=== PATIENT | male | born 1985 | race Caucasian/White ===

== ENCOUNTER 2016-05-22 13:50 | Emergency (ER) | payer MEDICAID ==
[~2016-05-22] VITALS: Ht 167.6 cm; Wt 98.0 kg
[~2016-05-22 13:50] MED LIST: ALBU8.5H2 IH; AMOX500C2 PO; AZIT250T PO; CPR500T PO; CYCL10TA9 PO; Concerta PO; DOXY100C2 PO; ESZO2TAB4 PO; FAMO20TA5 PO; HYDR115S2 PO; IBUP800T26 PO; LAMO100T69 PO; METH20TA PO; MPR22T TP; NAPR-243 PO; NAPR550T PO; ONDA8TAB9 PO; PRD10T PO; PRD20T PO; RITALIN; SULF1TAB38 PO; TRAM1TAB7 PO; TRAZ-144 PO; ZLP5T PO; neurontin
[2016-05-22 14:01] LABS: BASOPHILS % (AUTO) 0 % (0-10); EOSINOPHILS % (AUTO) 0 % (0-10); LYMPHOCYTES # (AUTO) 1.8 X 10^3 (1.0-4.0); LYMPHOCYTES % (AUTO) 20 % (12-44); MEAN CORPUSCULAR HEMOGLOBIN 30 PG (25-34); MEAN CORPUSCULAR HGB CONC 35 G/DL (32-36); MEAN CORPUSCULAR VOLUME 84 FL (80-99); MEAN PLATELET VOLUME 12.2 FL (7.4-10.4); MONOCYTES # (AUTO) 0.7 X 10^3 (0.0-1.0); MONOCYTES % (AUTO) 8 % (0-12); NEUTROPHILS # (AUTO) 6.3 X 10^3 (1.8-7.8); NEUTROPHILS % (AUTO) 72 % (42-75); PLATELET COUNT 192 10^3/uL (130-400); RED BLOOD COUNT 5.63 10^6/uL (4.35-5.85); RED CELL DISTRIBUTION WIDTH 12.8 % (10.0-14.5); WHITE BLOOD COUNT 8.8 10^3/uL (4.3-11.0)
--- NOTE | 2016-05-22 14:06 | ED Neurological Problem ---
General Chief Complaint: Neurological Problems Stated Complaint: ANXIETY Nursing Triage Note: c/o feeling anxious with generalized shakes that is worse on right side. Onset around noon while filling out a job resume. Reports recently been depressed. Patient's left him last week. He states is his is having an affair with another man. Generalized bodyaches reported. Nursing Sepsis Screen: No Definite Risk Source: patient, EMS Exam Limitations: no limitations History of Present Illness Time seen by provider: 14:04 Initial Comments To ER per EMS from [facility] where he was filling out an application for employment when he began twitching. States that his right side has been twitching for the past several weeks that he is shaking all over and he does feel somewhat anxious. He denies any history of this or seizures. He reports that he has been depressed lately secondary to his having an affair and left him last week. He reports that his last methamphetamine use was 5 months ago. Timing/Duration: increasing Severity: moderate Allergies and Home Medications Allergies Coded Allergies: lamotrigine (Verified Allergy, Unknown, 03/13/16) Home Medications (Reported) Azithromycin 250 Mg Tablet #4 250 MG PO DAILY Prescribed by: DIANNE MANSFIELD on 03/13/162 Hydrocodone/Chlorphen P-Stirex 480 Ml Rocio.er.12h #120 5 ML PO Q12H Prescribed by: DIANNE MANSFIELD on 03/13/16 2212 Naproxen Sodium 550 Mg Tablet #20 550 MG PO Q12H Prescribed by: DIANNE MANSFIELD on 03/13/16 2212 Constitutional: see HPI Eyes: No Symptoms Reported Ears, Nose, Mouth, Throat: no symptoms reported Respiratory: no symptoms reported Cardiovascular: no symptoms reported Genitourinary: no symptoms reported Musculoskeletal: no symptoms reported Skin: no symptoms reported Psychiatric/Neurological: See HPI Anxiety Depressed Endocrine: No Symptoms Reported Past Kfamkok-Pvjasf-Glegeo Hx Patient Social History Type Used: Cigarettes Recent Foreign Travel: No Contact w/Someone Who Travel: No Recent Infectious Disease Expo: No Recent Hopitalizations: No Surgeries HX Surgeries: Yes (labrum right shoulder) Surgeries: Appendectomy, Orthopedic Respiratory Hx Respiratory Disorders: No Cardiovascular Hx Cardiac Disorders: No Neurological Hx Neurological Disorders: No Reproductive System Hx Reproductive Disorders: No Genitourinary Hx Genitourinary Disorders: No Gastrointestinal Hx Gastrointestinal Disorders: Yes Gastrointestinal Disorders: Chronic Diarrhea Musculoskeletal Hx Musculoskeletal Disorders: No Endocrine Hx Endocrine Disorders: No HEENT HX ENT Disorders: No Cancer Hx Cancer: No Psychosocial Hx Psychiatric Problems: Yes Behavioral Health Disorders: ADD/ADHD, Sleep Difficulties, Anxiety Integumentary HX Skin/Integumentary Disorder: No Blood Transfusions Hx Blood Disorders: No Family Medical History Significant Family History: No Pertinent Family Hx Physical Exam Vital Signs Vital Sign - Last 12Hours 05/22/16 13:53 Temp 97.5 Pulse 114 Resp 20 B/P 125/85 Pulse Ox 98 O2 Delivery Room Air Capillary Refill : Less Than 3 Seconds General Appearance: WD/WN no apparent distress HEENT: PERRL/EOMI normal ENT inspection Neck: non-tender full range of motion Respiratory: no respiratory distress no accessory muscle use Gastrointestinal: normal bowel sounds non tender soft Neurologic/Psychiatric: alert normal mood/affect oriented x 3 other (patient lays calmly in bed talking on his cell phone until he sees me in the room at which point he begins shaking on the right side arm leg and face but this diminishes and intensity as I talk with him about various subjects.) Crainal Nerves: normal hearing normal speech PERRL Motor/Sensory: no motor deficit no sensory deficit Skin: normal color warm/dry Comments There is shaking of bilateral upper extremities however while shaking he is able to carry on a conversation with me Progress/Results/Core Measures Results/Orders Lab Results Laboratory Tests Test 05/22/16 13:54 05/22/16 15:00 Range/Units Alanine Aminotransferase (ALT/SGPT) 13 0-55 U/L Albumin 4.8 H 3.2-4.5 G/DL Alkaline Phosphatase 64 40-136 U/L Anion Gap 11 5-14 MMOL/L Aspartate Amino Transf (AST/SGOT) 15 5-34 U/L BUN/Creatinine Ratio 7 Basophils # (Auto) 0.0 0.0-0.1 10^3/uL Basophils (%) (Auto) 0 0-10 % Blood Urea Nitrogen 8 7-18 MG/DL Calcium Level 9.5 8.5-10.1 MG/DL Carbon Dioxide Level 25 21-32 MMOL/L Chloride Level 106 98-107 MMOL/L Creatinine 1.15 0.60-1.30 MG/DL Eosinophils # (Auto) 0.0 0.0-0.3 10^3/uL Eosinophils (%) (Auto) 0 0-10 % Estimat Glomerular Filtration Rate > 60 Glucose Level 92 70-105 MG/DL Hematocrit 48 40-54 % Hemoglobin 16.8 13.3-17.7 G/DL Lymphocytes # (Auto) 1.8 1.0-4.0 X 10^3 Lymphocytes (%) (Auto) 20 12-44 % Mean Corpuscular Hemoglobin 30 25-34 PG Mean Corpuscular Hemoglobin Concent 35 32-36 G/DL Mean Corpuscular Volume 84 80-99 FL Mean Platelet Volume 12.2 H 7.4-10.4 FL Monocytes # (Auto) 0.7 0.0-1.0 X 10^3 Monocytes (%) (Auto) 8 0-12 % Myoglobin 57.4 10.0-92.0 NG/ML Neutrophils # (Auto) 6.3 1.8-7.8 X 10^3 Neutrophils (%) (Auto) 72 42-75 % Platelet Count 192 130-400 10^3/uL Potassium Level 3.5 L 3.6-5.0 MMOL/L Red Blood Count 5.63 4.35-5.85 10^6/uL Red Cell Distribution Width 12.8 10.0-14.5 % Sodium Level 142 135-145 MMOL/L Total Bilirubin 1.3 H 0.1-1.0 MG/DL Total Creatine Kinase 65 30-200 U/L Total Protein 7.1 6.4-8.2 G/DL White Blood Count 8.8 4.3-11.0 10^3/uL Ur Tricyclic Antidepressants Screen NEGATIVE NEGATIVE Urine Amorphous Sediment RARE JAIMIE URATES H /LPF Urine Amphetamines Screen NEGATIVE NEGATIVE Urine Bacteria TRACE /HPF Urine Barbiturates Screen NEGATIVE NEGATIVE Urine Benzodiazepines Screen NEGATIVE NEGATIVE Urine Bilirubin 1+ H NEGATIVE Urine Cannabinoids Screen NEGATIVE NEGATIVE Urine Casts NONE /LPF Urine Clarity CLEAR Urine Cocaine Screen NEGATIVE NEGATIVE Urine Color YELLOW Urine Crystals PRESENT H /LPF Urine Culture Indicated NO Urine Glucose (UA) NEGATIVE NEGATIVE Urine Ketones 3+ H NEGATIVE Urine Leukocyte Esterase 1+ H NEGATIVE Urine Methadone Screen NEGATIVE NEGATIVE Urine Methamphetamines Screen NEGATIVE NEGATIVE Urine Mucus MODERATE H /LPF Urine Nitrite NEGATIVE NEGATIVE Urine Opiates Screen NEGATIVE NEGATIVE Urine Oxycodone Screen NEGATIVE NEGATIVE Urine Phencyclidine Screen NEGATIVE NEGATIVE Urine Propoxyphene Screen NEGATIVE NEGATIVE Urine Protein 2+ H NEGATIVE Urine RBC NONE /HPF Urine RBC (Auto) NEGATIVE NEGATIVE Urine Specific [place] 1.025 H 1.016-1.022 Urine Squamous Epithelial Cells 0-2 /HPF Urine Urobilinogen 1 NORMAL MG/DL Urine WBC 2-5 /HPF Urine pH 6 5-9 My Orders Orders-DANNY WOLFE APRN Cbc With Automated Diff (05/22/16 13:56) Comprehensive Metabolic Panel (05/22/16 13:56) Ua Culture If Indicated (05/22/16 13:56) Drug Screen Stat (Urine) (05/22/16 13:56) Ct Head Wo (05/22/16 13:56) Saline Lock/Iv-Start (05/22/16 14:01) Lorazepam Injection (Ativan Injection) (05/22/16 14:15) Creatine Kinase (05/22/16 15:15) Myoglobin Serum (05/22/16 15:15) Ns Iv 1000 Ml (Sodium Chloride 0.9%) (05/22/16 15:15) Medications Given in ED Current Medications Medications Dose Ordered Sig/Rosie Route Start Time Stop Time Status Last Admin Dose Admin Lorazepam 1 mg ONCE ONCE IVP 05/22/16 14:15 05/22/16 14:16 DC 05/22/16 14:09 1 MG Vital Signs/I&O Vital Sign - Last 12Hours 05/22/16 13:53 Temp 97.5 Pulse 114 Resp 20 B/P 125/85 Pulse Ox 98 O2 Delivery Room Air Blood Pressure Mean: 98 Diagnostic Imaging Diagonstic Imaging: CT Comments NAME: LEWIS KANG [facility] REC#: [id number] PT STATUS: REG ER : 1985 PHYSICIAN: DANNY WOLFE APRN ADMIT DATE: 05/22/16/ER Signed Date of Exam:05/22/16 CT HEAD WO PROCEDURE: CT head without contrast. TECHNIQUE: Multiple contiguous axial images were obtained through the brain without the use of intravenous contrast. INDICATION: Leg weakness and shaky. Status post fall. . FINDINGS: There is no intracranial hemorrhage, edema or mass effect. The brain parenchyma appears unremarkable. No hydrocephalus. The visualized portions of the orbits and paranasal sinuses appear unremarkable. IMPRESSION: Unremarkable study. Dictated by: Dictated on workstation # [id number] Dict: 05/22/16 1421 Trans: 05/22/16 1422 [facility] [id number] Interpreted by: CARMEN LYLE MD Electronically signed by: CARMEN LYLE MD 05/22/16 1425 Departure Communication Progress Notes 1607-this time patient laying face down on the bed wiggling both of his feet playing on his cell phone. However, when I spoke and he realized I was in the room he rolled over onto his back and started twitching the right side of his hand, right leg, right face but is able to carry on a conversation with me while doing this Impression Impression: Primary Impression: Dehydration Additional Impression: Stress at home Disposition: HOME, SELF-CARE Condition: Stable Departure-Patient Inst. Decision time for Depature: 14:41 Referrals: LANDEN WILLIAMSON DO (PCP/Family) Primary Care Physician Patient Instructions: Dehydration, Stress Add. Discharge Instructions: 1. Follow-up with your doctor next week 2. Return to ER for any concerns 3. Drink lots of water, 2 L per day. All discharge instructions reviewed with patient and/or family. Voiced understanding. Copy Copies To 1: LANDEN WILLIAMSON PETER J APRN May 22, 2016 14:06
[2016-05-22] MEDS ORDERED: LORazepam INJ 2 MG/ML (ATIVAN) VIAL IVP ONE (14:15)
[2016-05-22 14:21] LABS: ALANINE AMINOTRANSFERASE 13 U/L (0-55); ALBUMIN 4.8 G/DL (3.2-4.5); ANION GAP 11 MMOL/L (5-14); ASPARTATE AMINO TRANSFERASE 15 U/L (5-34); BILIRUBIN,TOTAL 1.3 MG/DL (0.1-1.0); BLOOD UREA NITROGEN 8 MG/DL (7-18); BUN/CREATININE RATIO 7; CALCIUM 9.5 MG/DL (8.5-10.1); CARBON DIOXIDE 25 MMOL/L (21-32); CHLORIDE 106 MMOL/L (98-107); CREATININE SERUM 1.15 MG/DL (0.60-1.30); GFR ESTIMATED > 60; GLUCOSE 92 MG/DL (70-105); POTASSIUM 3.5 MMOL/L (3.6-5.0); SODIUM 142 MMOL/L (135-145); TOTAL PROTEIN 7.1 G/DL (6.4-8.2)
--- NOTE | 2016-05-22 14:25 | Diagnostic Imaging Report ---
PROCEDURE: CT head without contrast. TECHNIQUE: Multiple contiguous axial images were obtained through the brain without the use of intravenous contrast. INDICATION: Leg weakness and shaky. Status post fall. . FINDINGS: There is no intracranial hemorrhage, edema or mass effect. The brain parenchyma appears unremarkable. No hydrocephalus. The visualized portions of the orbits and paranasal sinuses appear unremarkable. IMPRESSION: Unremarkable study. Dictated by: Dictated on workstation # [id number]
[2016-05-22] MEDS ORDERED: HYDR-757 PO (14:43)
[2016-05-22] MEDS ORDERED: KETO5DRO OP (14:46)
[2016-05-22 15:06] LABS: KETONES,URINE 3+ (NEGATIVE); LEUKOCYTE ESTERASE ,URINE 1+ (NEGATIVE); NITRITE,URINE NEGATIVE (NEGATIVE); PH,URINE 6 (5-9); PROTEIN,URINE 2+ (NEGATIVE); UROBILINOGEN,URINE 1 MG/DL (NORMAL)
[2016-05-22 15:14] LABS: BILIRUBIN,URINE 1+ (NEGATIVE); SQUAMOUS EPITHELIAL CELL,UR 0-2 /HPF
[2016-05-22] MEDS ORDERED: NS IV 1000 ML 1,000 ML IV SCH (15:15)
[2016-05-22 15:35] LABS: MYOGLOBIN SERUM 57.4 NG/ML (10.0-92.0)
[2016-05-22 16:42] VITALS: BP 128/72
== END 2016-05-22 16:42 | disposition home or self-care (01) ==
LOC: EDUNIT# 13:50 → ER 13:52
DX: E86.0 Dehydration (principal); Z63.5 Disruption of family by separation and divorce
CPT/HCPCS: 36415; 70450; 80053; 80306; 81000; 82550; 83874; 85025; 96361; 96374

== ENCOUNTER 2017-03-24 07:23 | Emergency (ER) | payer OTHER, MEDICAID ==
[~2017-03-24] VITALS: Ht 167.6 cm; Wt 72.6 kg
[~2017-03-24 07:23] MED LIST changes: +HYDR-757 PO; +KETO5DRO OP
--- OUTSIDE RECORDS SUMMARY | 2017-03-24 07:29 | XMS REPORT ---
Author Author TAMIKO LARA eClinicalWorks Address Unknown Phone Unavailable Care Team Providers Care Bioinformatics Support Specialist Name Role Phone TAMIKO LARA CP Unavailable Allergies No Known Allergies Problems Problem Type Condition ICD-9 Code Onset Dates Condition Status Problem Nondependent tobacco use disorder 305.1 Active Problem Unspecified dental caries 521.00 Active Problem Unspecified episodic mood disorder 296.90 Active Problem Encounter for long-term (current) use of other medications V58.69 Active Problem Routine general medical examination at health care facility V70.0 Active Problem Anxiety state, unspecified 300.00 Active Medications Medication Code System Code Instructions Start Date End Date Status Dosage Methylphenidate [facility] [address]-72 20 MG/9HR Oral in the AM, 1pm and 4pm for ADHD 1 tab Results No Known Results Summary Purpose eClinicalWorks Submission
--- OUTSIDE RECORDS SUMMARY | 2017-03-24 07:31 | XMS REPORT ---
Author TAMIKO Saldana e[employer] Address Unknown Phone Unavailable Care Team Providers Care Household Appliance Assembler Name Role Phone TAMIKO LARA CP Unavailable Allergies No Known Allergies Problems Problem Type Condition Code Onset Dates Condition Status Problem Encounter for long-term (current) use of other medications V58.69 Active Problem ADHD, predominantly inattentive type F90.0 Active Problem Depression F32.9 Active Problem Anxiety state, unspecified 300.00 Active Problem Unspecified dental caries 521.00 Active Problem Routine general medical examination at health care facility V70.0 Active Problem Unspecified mood [affective] disorder F39 Active Problem Nondependent tobacco use disorder 305.1 Active Medications Medication Code System Code Instructions Start Date End Date Status Dosage HydrOXYzine HCl [facility] [address]-21 25 MG Orally 1 tab in AM and 2 tab at HS for anxiety Dec 30, 2014 1 tablet Results No Known Results Summary Purpose eClinicalWorks Submission
--- OUTSIDE RECORDS SUMMARY | 2017-03-24 07:31 | XMS REPORT ---
Author Author ETIENNE ESPITIA [facility] eClinicalWorks Address Unknown Phone Unavailable Care Team Providers Care Shotgun Shell Loading Machine Operator Name Role Phone ETIENNE ESPITIA CP Unavailable Allergies No Known Allergies Problems Problem Type Condition Code Onset Dates Condition Status Problem Nondependent tobacco use disorder 305.1 Active Problem Unspecified dental caries 521.00 Active Problem Unspecified mood [affective] disorder F39 Active Assessment Unspecified mood [affective] disorder F39 Active Problem Routine general medical examination at health care facility V70.0 Active Problem Encounter for long-term (current) use of other medications V58.69 Active Medications No Known Medications Procedures Procedure Coding System Code Date Psychotherapy, patient &/family, 45 minutes, established patient CPT-4 02652 Mar 02, 2015 Results No Known Results Summary Purpose eClinicalWorks Submission
--- OUTSIDE RECORDS SUMMARY | 2017-03-24 07:31 | XMS REPORT ---
Author TAMIKO Saldana e[employer] Address Unknown Phone Unavailable Care Team Providers Care Psych Arnp Name Role Phone TAMIKO LARA CP Unavailable [...] Instructions Start Date End Date Status Dosage Ritalin [facility] [address]-36 10 MG Orally in the AM and 1pm and 1 tab at 4pm for ADHD - Dr Fowler to sign for Karly July 27, 2014 2 tablet Results No Known Results Summary Purpose eClinicalWorks Submission
--- OUTSIDE RECORDS SUMMARY | 2017-03-24 07:31 | XMS REPORT ---
Author Author JANE TAMIKO Organization [facility] Address [address] [place] [address] Care Team Providers Care Two Needle Machine Operator Name Role Phone TAMIKO LARA Unavailable PROBLEMS Type Condition ICD9-CM Code [id number] Code Onset Dates Condition Status SNOMED Code Problem Environmental allergies Z91.09 Active 062196014 Problem Anxiety F41.9 Active 69057036 Problem ADHD, predominantly inattentive type F90.0 Active 67912904 Problem Pain in right shoulder M25.511 Active 40295440 Problem Depression F32.9 Active 59432915 ALLERGIES Substance Reaction Event Type Date Status Lamictal RASH ALL OVER BODY WAS SEEN IN ER. Drug Allergy May, Active SOCIAL HISTORY Never Assessed PLAN OF CARE Activity Details Follow Up 3 Months Reason: VITAL SIGNS Height 67 in 2016-06-07 Weight 216.9 lbs 2016-06-07 Heart Rate 84 bpm 2016-06-07 Respiratory Rate 20 2016-06-07 BMI 33.97 kg/m2 2016-06-07 Blood pressure systolic 137 mmHg 2016-06-07 Blood pressure diastolic 88 mmHg 2016-06-07 MEDICATIONS Medication Instructions Dosage Frequency Start Date End Date Duration Status BuPROPion HCl (SR) 150 MG Orally in the morning and at bedtime 1 tablet Nov, Active Clonidine HCl 0.2 MG Orally at bedtime for sleep 1 tablet May, Active Methylphenidate HCl 20 MG Orally in the AM & 12N. Take 1/2 tab at 4pm for ADHD 1 tablet May, Active Neurontin 300 MG Orally 2 times a day 1 capsule 12h 30 Oct, 2015 Active RESULTS No Results PROCEDURES No Known procedures IMMUNIZATIONS No Known Immunizations MEDICAL (GENERAL) HISTORY Type Description Date Medical History ADHD Medical History Anxiety Medical History Mood Swings Medical History Unspecified mood [affective] disorder Medical History Marital conflict Medical History Adjustment disorder with anxious mood Medical History MARQUIS (generalized anxiety disorder) Medical History MARQUIS (generalized anxiety disorder) Surgical History appendectomy 2011 Surgical History right shoulder repair x 2 2012 Surgical History Right Shoulder 2016 Hospitalization History strep throat 2010
--- OUTSIDE RECORDS SUMMARY | 2017-03-24 07:31 | XMS REPORT ---
Author TAMIKO Saldana eClinicalWorks Address Unknown Phone Unavailable Care Team Providers Care Commercial Director Name Role Phone TAMIKO LARA CP Unavailable Allergies, Adverse Reactions, Alerts Substance Reaction Event Type Lamictal RASH ALL OVER BODY WAS SEEN IN ER. Drug Allergy Problems Problem Type Condition ICD-9 Code Onset Dates Condition Status Assessment Anxiety state, unspecified 300.00 Active Assessment Attention deficit disorder without mention of hyperactivity 314.00 Active Problem Nondependent tobacco use disorder 305.1 Active Problem Unspecified dental caries 521.00 Active Problem Unspecified episodic mood disorder 296.90 Active Problem Encounter for long-term (current) use of other medications V58.69 Active Assessment Unspecified episodic mood disorder 296.90 Active Problem Routine general medical examination at health care facility V70.0 Active Problem Anxiety state, unspecified 300.00 Active Medications Medication Code System Code Instructions Start Date End Date Status Dosage HydrOXYzine HCl [facility] [address]-18 25 MG Orally 2 times a day for anxiety Dec 30, 2014 1 tablet Neurontin [facility] [address]-46 300 MG Orally 2 times a day for anxiety/mood Dec 30, 2014 1 capsule Methylphenidate [facility] [address]-03 20 MG/9HR Oral in the AM, 1pm and 4pm for ADHD 1 tab Procedures Procedure Coding System Code Date Office Visit, Est Pt., Level 3 CPT-4 07684 Feb 01, 2015 Vital Signs Date/Time: Feb 01, 2015 Temperature 98.3 F Weight 204 lbs Height 67 in BMI 31.95 Index Blood Pressure Diastolic 80 mmHg Blood Pressure Systolic 120 mmHg Cardiac Monitoring Heart Rate 108 bpm Results No Known Results Summary Purpose eClinicalWorks Submission
--- OUTSIDE RECORDS SUMMARY | 2017-03-24 07:33 | XMS REPORT ---
Author Author TAMIKO LARA eClinicalWorks Address Unknown Phone Unavailable Care Team Providers Care Rn Paralegal Name Role Phone TAMIKO LARA CP Unavailable Allergies, Adverse Reactions, Alerts Substance Reaction Event Type Lamictal RASH ALL OVER BODY WAS SEEN IN ER. Drug Allergy Problems Problem Type Condition ICD-9 Code Onset Dates Condition Status Assessment Acute stress disorder 308.3 Active Assessment Unspecified episodic mood disorder 296.90 Active Assessment ADHD (attention deficit hyperactivity disorder), combined type 314.01 Active Problem Nondependent tobacco use disorder 305.1 Active Problem Unspecified dental caries 521.00 Active Problem Unspecified episodic mood disorder 296.90 Active Problem Encounter for long-term (current) use of other medications V58.69 Active Assessment Anxiety state, unspecified 300.00 Active Problem Routine general medical examination at health care facility V70.0 Active Problem Anxiety state, unspecified 300.00 Active Medications Medication Code System Code Instructions Start Date End Date Status Dosage Neurontin [facility] [address]-23 300 MG Orally 1 tab at HS for 3 days then increase to BID Dec 30, 2014 1 capsule HydrOXYzine HCl [facility] [address]-68 25 MG Orally 2 times a day for anxiety Dec 30, [address] [facility] [address]-01 20 MG/9HR Oral in the AM, 1pm and 4pm for ADHD 1 tab Procedures Procedure Coding System Code Date Office Visit, Est Pt., Level 4 CPT-4 47860 Dec 30, 2014 Vital Signs Date/Time: Dec 30, 2014 Temperature 98.0 F Weight 202.1 lbs Height 67 in BMI 31.65 Index Blood Pressure Diastolic 78 mmHg Blood Pressure Systolic 120 mmHg Cardiac Monitoring Heart Rate 68 bpm Results No Known Results Summary Purpose eClinicalWorks Submission
--- OUTSIDE RECORDS SUMMARY | 2017-03-24 07:33 | XMS REPORT ---
Author TAMIKO Saldana eClinicalWorks Address Unknown Phone Unavailable Care Team Providers Care Production Control Coordinator Name Role Phone TAMIKO LARA CP Unavailable Allergies No Known Allergies Problems Problem Type Condition Code Onset Dates Condition Status Problem Encounter for long-term (current) use of other medications V58.69 Active Problem Unspecified dental caries 521.00 Active Problem Routine general medical examination at health care facility V70.0 Active Assessment MARQUIS (generalized anxiety disorder) F41.1 Active Assessment ADHD, predominantly inattentive type F90.0 Active Problem MARQUIS (generalized anxiety disorder) F41.1 Active Problem Anxiety state, unspecified 300.00 Active Problem Pain in right shoulder M25.511 Active Problem Unspecified mood [affective] disorder F39 Active Problem Nondependent tobacco use disorder 305.1 Active Problem ADHD, predominantly inattentive type F90.0 Active Problem Depression F32.9 Active Medications Medication Code System Code Instructions Start Date End Date Status Dosage Neurontin [facility] [address]-82 300 MG Orally 2 times a day November 10, 2015 1 capsule BuPROPion HCl (SR) [facility] [address]-99 150 MG Orally Once a day for nicotine addiction December 01, 2015 1 tablet Procedures Procedure Coding System Code Date DRUG SCREEN NON TLC DEVICES CPT-4 79565 December 01, 2015 Office Visit, Est Pt., Level 4 CPT-4 30337 December 01, 2015 Vital Signs Date/Time: December 01, 2015 Cardiac Monitoring Heart Rate 80 bpm Weight 208.6 lbs Height 67 in Blood Pressure Diastolic 76 mmHg Blood Pressure Systolic 132 mmHg Results No Known Results Summary Purpose eClinicalWorks Submission
--- OUTSIDE RECORDS SUMMARY | 2017-03-24 07:33 | XMS REPORT ---
Author Author MANISHA CARLSON [facility] Address [address] [place] [address] Care Team Providers Care Suction Plate Carrier Cleaner Name Role Phone MANISHA CARLSON Unavailable PROBLEMS Type Condition ICD9-CM Code [id number] Code Onset Dates Condition Status SNOMED Code Problem Environmental allergies Z91.09 Active 888296301 Problem Anxiety F41.9 Active 35127832 Problem ADHD, predominantly inattentive type F90.0 Active 07782923 Problem Pain in right shoulder M25.511 Active 45800968 Problem Depression F32.9 Active 02626461 ALLERGIES Substance Reaction Event Type Date Status Lamictal RASH ALL OVER BODY WAS SEEN IN ER. Drug Allergy May, Active SOCIAL HISTORY No smoking Hx information available PLAN OF CARE Activity Details Follow Up 2 Weeks Reason:depression, anxiety VITAL SIGNS MEDICATIONS Unknown Medications RESULTS No Results PROCEDURES Procedure Date Ordered Related Diagnosis Body Site Psychotherapy, patient &/family, 30 minutes, established patient Jun 12, 2016 IMMUNIZATIONS No Known Immunizations
--- OUTSIDE RECORDS SUMMARY | 2017-03-24 07:33 | XMS REPORT ---
Author Author TAMIKO LARA eClinicalWorks Address Unknown Phone Unavailable Care Team Providers Care Neurology Teacher Name Role Phone TAMIKO LARA CP Unavailable Allergies, Adverse Reactions, Alerts Substance Reaction Event Type Lamictal RASH ALL OVER BODY WAS SEEN IN ER. Drug Allergy Problems Problem Type Condition Code Onset Dates Condition Status Assessment Anxiety state, unspecified 300.00 Active Problem Encounter for long-term (current) use of other medications V58.69 Active Assessment ADHD, predominantly inattentive type F90.0 Active Problem ADHD, predominantly inattentive type F90.0 Active Problem Depression F32.9 Active Problem Anxiety state, unspecified 300.00 Active Problem Unspecified dental caries 521.00 Active Problem Routine general medical examination at health care facility V70.0 Active Problem Unspecified mood [affective] disorder F39 Active Problem Nondependent tobacco use disorder 305.1 Active Medications Medication Code System Code Instructions Start Date End Date Status Dosage Ritalin [facility] [address]-34 10 MG Orally in the AM and 1pm and 1 tab at 4pm for ADHD - Dr Fowler to sign for Karly July 27, 2014 2 tablet HydrOXYzine HCl [facility] [address]-32 25 MG Orally 1 tab in AM and 2 tab at HS for anxiety Dec 30, 2014 1 tablet Neurontin [facility] [address]-19 300 MG Orally 2 times a day Dec 30, 2014 1 capsule Procedures Procedure Coding System Code Date Office Visit, Est Pt., Level 4 CPT-4 42742 May 12, 2015 Vital Signs Date/Time: May 12, 2015 Cardiac Monitoring Heart Rate 88 bpm Weight 212.8 lbs Height 67 in BMI 33.33 Index Blood Pressure Diastolic 90 mmHg Blood Pressure Systolic 130 mmHg Results No Known Results Summary Purpose eClinicalWorks Submission
--- OUTSIDE RECORDS SUMMARY | 2017-03-24 07:33 | XMS REPORT ---
Author Author TAMIKO LARA Organization [facility] Address [address] [place] [address] Care Team Providers Care Betting Clerk Name Role Phone JANEMEDARDOTAMIKO Unavailable PROBLEMS Type Condition ICD9-CM Code [id number] Code Onset Dates Condition Status SNOMED Code Assessment Depression F32.9 Jan, Active 583138065 Problem Routine general medical examination at health care facility V70.0 Active 081602978 Problem Encounter for long-term (current) use of other medications V58.69 Active 998693408 Problem Pain in right shoulder M25.511 Active 95662227 Problem MARQUIS (generalized anxiety disorder) F41.1 Active 99963651 Problem Nondependent tobacco use disorder 305.1 Active 018420816 Problem Unspecified dental caries 521.00 Active 72298651 Problem ADHD, predominantly inattentive type F90.0 Active 18870936 Problem Depression F32.9 Active 90036536 ALLERGIES Substance Reaction Event Type Date Status Lamictal RASH ALL OVER BODY WAS SEEN IN ER. Drug Allergy Jan, Active SOCIAL HISTORY No smoking Hx information available PLAN OF CARE VITAL SIGNS Height 67 in 2016-01-31 Weight 226.2 lbs 2016-01-31 Heart Rate 88 bpm 2016-01-31 Respiratory Rate 20 2016-01-31 BMI 35.42 kg/m2 2016-01-31 Blood pressure systolic 136 mmHg 2016-01-31 Blood pressure diastolic 85 mmHg 2016-01-31 MEDICATIONS Medication Instructions Dosage Frequency Start Date End Date Duration Status BuPROPion HCl (SR) 150 MG Orally in the morning and at bedtime 1 tablet Nov, Active Neurontin 300 MG 1 capsule in the AM and 2 caps at bedtime Oct, Active RESULTS No Results PROCEDURES Procedure Date Ordered Related Diagnosis Body Site MH Office Visit, Est Pt., Level 4 Jan 31, 2016 IMMUNIZATIONS No Known Immunizations
--- OUTSIDE RECORDS SUMMARY | 2017-03-24 07:33 | XMS REPORT ---
Author Author TAMIKO LARA [facility] Address [address] [place] [address] Care Team Providers Care Nursing Technician Name Role Phone TAMIKO LARA Unavailable PROBLEMS Type Condition ICD9-CM Code HUT24-IO Code Onset Dates Condition Status SNOMED Code Problem Environmental allergies Z91.09 Active 302749368 Problem Anxiety F41.9 Active 64389510 Problem ADHD, predominantly inattentive type F90.0 Active 93603096 Problem Pain in right shoulder M25.511 Active 02027393 Problem Depression F32.9 Active 62406290 ALLERGIES Unknown Allergies SOCIAL HISTORY No smoking Hx information available PLAN OF CARE VITAL SIGNS MEDICATIONS Medication Instructions Dosage Frequency Start Date End Date Duration Status Methylphenidate HCl 20 mg Orally in the AM & 12N. Take 1/2 tab at 4pm for ADHD 1 tablet Jun, 2 Jul, 2016 28 days Active RESULTS No Results PROCEDURES No Known procedures IMMUNIZATIONS No Known Immunizations
--- OUTSIDE RECORDS SUMMARY | 2017-03-24 07:33 | XMS REPORT ---
Author TAMIKO Saldana [employer] Address Unknown Phone Unavailable Care Team Providers Care Analytics Senior Manager Name Role Phone TAMIKO LARA CP Unavailable [...] Start Date End Date Status Dosage Ritalin [facility] [address]-83 10 MG Orally in the AM and 1pm and 1 tab at 4pm for ADHD - Dr Fowler to sign for Karly July 27, 2014 2 tablet Results No Known Results Summary Purpose eClinicalWorks Submission
--- OUTSIDE RECORDS SUMMARY | 2017-03-24 07:33 | XMS REPORT ---
Author Author MANISHA CARLSON [facility] Address [address] [place] [address] Care Team Providers Care Breaker Oiler Name Role Phone MANISHA CARLSON Unavailable PROBLEMS Type Condition ICD9-CM Code LPY26-QZ Code Onset Dates Condition Status SNOMED Code Problem Environmental allergies Z91.09 Active 386169549 Problem Anxiety F41.9 Active 97533373 Problem ADHD, predominantly inattentive type F90.0 Active 32626545 Problem Pain in right shoulder M25.511 Active 19870646 Problem Depression F32.9 Active 69877689 ALLERGIES Substance Reaction Event Type Date Status Lamictal RASH ALL OVER BODY WAS SEEN IN ER. Drug Allergy May, Active SOCIAL HISTORY No smoking Hx information available PLAN OF CARE Activity Details Follow Up 1 Week Reason:Depression, stress, anxiety VITAL SIGNS MEDICATIONS Unknown Medications RESULTS No Results PROCEDURES Procedure Date Ordered Related Diagnosis Body Site Psych diagnostic evaluation, established patient Jun 08, 2016 IMMUNIZATIONS No Known Immunizations
--- OUTSIDE RECORDS SUMMARY | 2017-03-24 07:33 | XMS REPORT ---
Author Author KIAH MASON [facility] eClinicalWorks Address Unknown Phone Unavailable Care Team Providers Care Rn Team Leader Name Role Phone KIAH MASON CP Unavailable Allergies No Known Allergies Problems Problem Type Condition Code Onset Dates Condition Status Problem Encounter for long-term (current) use of other medications V58.69 Active Problem Unspecified dental caries 521.00 Active Problem Routine general medical examination at health care facility V70.0 Active Assessment SLAP lesion of right shoulder S43.431A Active Problem MARQUIS (generalized anxiety disorder) F41.1 Active Problem Anxiety state, unspecified 300.00 Active Problem Pain in right shoulder M25.511 Active Problem Unspecified mood [affective] disorder F39 Active Problem Nondependent tobacco use disorder 305.1 Active Problem ADHD, predominantly inattentive type F90.0 Active Problem Depression F32.9 Active Medications No Known Medications Procedures Procedure Coding System Code Date Office Visit, Est Pt., Level 3 CPT-4 62947 November 17, 2015 Vital Signs Date/Time: November 17, 2015 Blood Pressure Diastolic 82 mmHg Blood Pressure Systolic 124 mmHg Height 67 in Results No Known Results Summary Purpose eClinicalWorks Submission
--- OUTSIDE RECORDS SUMMARY | 2017-03-24 07:33 | XMS REPORT ---
Author Author ETIENNE ESPITIA [facility] Address [address] [place] [address] Care Team Providers Care Telemetry Monitor Name Role Phone ETIENNE ESPITIA Unavailable PROBLEMS Type Condition ICD9-CM Code TER47-LW Code Onset Dates Condition Status SNOMED Code Problem Environmental allergies Z91.09 Active 449651940 Problem Anxiety F41.9 Active 31475752 Problem ADHD, predominantly inattentive type F90.0 Active 69755132 Problem Pain in right shoulder M25.511 Active 05253643 Problem Depression F32.9 Active 50478797 ALLERGIES Unknown Allergies SOCIAL HISTORY No smoking Hx information available PLAN OF CARE Activity Details Follow Up 4 Weeks Reason: VITAL SIGNS MEDICATIONS Unknown Medications RESULTS No Results PROCEDURES Procedure Date Ordered Related Diagnosis Body Site Psychotherapy, patient &/family, 30 minutes, established patient May 15, 2016 IMMUNIZATIONS No Known Immunizations
--- OUTSIDE RECORDS SUMMARY | 2017-03-24 07:33 | XMS REPORT ---
Author Author DIANNE MAHER [facility] Address [address] [place] [address] Care Team Providers Care Laundry Machine Operator Name Role Phone DIANNE MAHER Unavailable PROBLEMS Type Condition ICD9-CM Code ABB57-HZ Code Onset Dates Condition Status SNOMED Code Problem Environmental allergies Z91.09 Active 876199283 Problem Anxiety F41.9 Active 46667907 Problem ADHD, predominantly inattentive type F90.0 Active 11960809 Problem Pain in right shoulder M25.511 Active 29337454 Problem Depression F32.9 Active 46301269 ALLERGIES Unknown Allergies SOCIAL HISTORY No smoking Hx information available PLAN OF CARE VITAL SIGNS Height 67 in 2016-05-28 Weight 216.3 lbs 2016-05-28 BMI 33.87 kg/m2 2016-05-28 MEDICATIONS Unknown Medications RESULTS No Results PROCEDURES No Known procedures IMMUNIZATIONS No Known Immunizations
--- OUTSIDE RECORDS SUMMARY | 2017-03-24 07:34 | XMS REPORT ---
Author Author TAMIKO LARA [facility] Address [address] [place] [address] Care Team Providers Care Non Destructive Evaluation Manager Name Role Phone TAMIKO LARA Unavailable PROBLEMS Type Condition ICD9-CM Code RRA01-WW Code Onset Dates Condition Status SNOMED Code Problem Environmental allergies Z91.09 Active 246552550 Problem Anxiety F41.9 Active 81766975 Problem ADHD, predominantly inattentive type F90.0 Active 59349518 Problem Pain in right shoulder M25.511 Active 03131536 Problem Depression F32.9 Active 75036111 ALLERGIES Unknown Allergies SOCIAL HISTORY No smoking Hx information available PLAN OF CARE VITAL SIGNS MEDICATIONS Unknown Medications RESULTS No Results PROCEDURES No Known procedures IMMUNIZATIONS No Known Immunizations
--- OUTSIDE RECORDS SUMMARY | 2017-03-24 07:34 | XMS REPORT ---
Author Author ETIENNE ESPITIA [facility] eClinicalWorks Address Unknown Phone Unavailable Care Team Providers Care Mica Parts Sprayer Name Role Phone ETIENNE ESPITIA CP Unavailable Allergies No Known Allergies Problems Problem Type Condition Code Onset Dates Condition Status Problem Encounter for long-term (current) use of other medications V58.69 Active Problem Unspecified dental caries 521.00 Active Problem Routine general medical examination at health care facility V70.0 Active Problem MARQUIS (generalized anxiety disorder) F41.1 Active Problem Anxiety state, unspecified 300.00 Active Problem Pain in right shoulder M25.511 Active Problem Unspecified mood [affective] disorder F39 Active Problem Nondependent tobacco use disorder 305.1 Active Problem ADHD, predominantly inattentive type F90.0 Active Problem Depression F32.9 Active Assessment MARQUIS (generalized anxiety disorder) F41.1 Active Assessment ADHD, predominantly inattentive type F90.0 Active Assessment Depression F32.9 Active Medications No Known Medications Procedures Procedure Coding System Code Date Psychotherapy, patient &/family, 30 minutes, established patient CPT-4 86149 December 02, 2015 Results No Known Results Summary Purpose eClinicalWorks Submission
--- OUTSIDE RECORDS SUMMARY | 2017-03-24 07:36 | XMS REPORT ---
Author Author TAMIKO LARA Organization [facility] Address [address] [place] [address] Care Team Providers Care Staff Engineer Name Role Phone JANEYAREDA Unavailable PROBLEMS Type Condition ICD9-CM Code FWY73-SV Code Onset Dates Condition Status SNOMED Code Problem Environmental allergies Z91.09 Active 094953528 Problem Anxiety F41.9 Active 73350764 Problem ADHD, predominantly inattentive type F90.0 Active 17852993 Problem Pain in right shoulder M25.511 Active 34130545 Problem Depression F32.9 Active 73539508 ALLERGIES Substance Reaction Event Type Date Status Lamictal RASH ALL OVER BODY WAS SEEN IN ER. Drug Allergy May, Active SOCIAL HISTORY No smoking Hx information available PLAN OF CARE Activity Details Follow Up 2 Months Reason: VITAL SIGNS Height 67 in 2016-05-29 Weight 215.0 lbs 2016-05-29 Heart Rate 92 bpm 2016-05-29 Respiratory Rate 22 2016-05-29 BMI 33.67 kg/m2 2016-05-29 Blood pressure systolic 160 mmHg 2016-05-29 Blood pressure diastolic 92 mmHg 2016-05-29 MEDICATIONS Medication Instructions Dosage Frequency Start Date End Date Duration Status Neurontin 300 MG Orally 2 times a day 1 capsule 12h 30 Oct, 2015 Active BuPROPion HCl (SR) 150 MG Orally in the morning and at bedtime 1 tablet Nov, Active Clonidine HCl 0.2 MG Orally at bedtime for sleep 1 tablet May, Active Methylphenidate HCl 20 MG Orally in the AM & 12N. Take 1/2 tab at 4pm for ADHD 1 tablet May, Active RESULTS No Results PROCEDURES Procedure Date Ordered Related Diagnosis Body Site MH Office Visit, Est Pt., Level 4 May 29, 2016 IMMUNIZATIONS No Known Immunizations
--- OUTSIDE RECORDS SUMMARY | 2017-03-24 07:36 | XMS REPORT ---
Author DIANNE Aguilar [facility] eClinicalWorks Address Unknown Phone Unavailable Care Team Providers Care Rn Lvn Name Role Phone DIANNE MAHER CP Unavailable Allergies, Adverse Reactions, Alerts Substance Reaction Event Type Lamictal RASH ALL OVER BODY WAS SEEN IN ER. Drug Allergy Problems Problem Type Condition Code Onset Dates Condition Status Problem Encounter for long-term (current) use of other medications V58.69 Active Problem Unspecified dental caries 521.00 Active Problem Routine general medical examination at health care facility V70.0 Active Assessment Pharyngitis, unspecified etiology J02.9 Active Problem MARQUIS (generalized anxiety disorder) F41.1 Active Problem Anxiety state, unspecified 300.00 Active Problem Pain in right shoulder M25.511 Active Problem Unspecified mood [affective] disorder F39 Active Problem Nondependent tobacco use disorder 305.1 Active Problem ADHD, predominantly inattentive type F90.0 Active Problem Depression F32.9 Active Medications Medication Code System Code Instructions Start Date End Date Status Dosage PredniSONE [facility] [address]-30 20 mg Orally Once a day Mar 07, 2016 Mar 12, 2016 2 tablets Neurontin [facility] [address]-37 300 MG Orally November 10, 2015 1 capsule in the AM and 2 caps at bedtime BuPROPion HCl (SR) [facility] [address]-88 150 MG Orally in the morning and at bedtime December 01, 2015 1 tablet Augmentin [facility] [address]-02 875-125 MG Orally every 12 hrs Mar 07, 2016 Mar 17, 2016 1 tablet Procedures Procedure Coding System Code Date Office Visit, Est Pt., Level 3 CPT-4 38141 Mar 07, 2016 INFLUENZA ASSAY W/OPTIC CPT-4 85617 Mar 07, 2016 Vital Signs Date/Time: Mar 07, 2016 Cardiac Monitoring Heart Rate 120 bpm Weight 231.4 lbs Height 67 in BMI 36.24 Index Blood Pressure Diastolic 96 mmHg Blood Pressure Systolic 163 mmHg Results Name Result Date Reference Range Unit Abnormality Flag INFLUENZA A & B (IN HOUSE) ----Control + [id number] ----Lot # [id number] ----Exp date [id number] Summary Purpose eClinicalWorks Submission
--- OUTSIDE RECORDS SUMMARY | 2017-03-24 07:38 | XMS REPORT ---
Author Author MANISHA CARLSON Organization [facility] Address [address] [place] [address] Care Team Providers Care Change Person Name Role Phone MANISHA CARLSON Unavailable PROBLEMS Type Condition ICD9-CM Code LJG90-VH Code Onset Dates Condition Status SNOMED Code Problem Environmental allergies Z91.09 Active 520712911 Problem Anxiety F41.9 Active 39995344 Problem ADHD, predominantly inattentive type F90.0 Active 53785820 Problem Pain in right shoulder M25.511 Active 69298831 Problem Depression F32.9 Active 92312682 ALLERGIES Substance Reaction Event Type Date Status Lamictal RASH ALL OVER BODY WAS SEEN IN ER. Drug Allergy Oct, Active SOCIAL HISTORY Never Assessed PLAN OF CARE Activity Details Follow Up 2 Weeks Reason:Depression, anxiety VITAL SIGNS MEDICATIONS Unknown Medications RESULTS No Results PROCEDURES Procedure Date Ordered Result Body Site Psychotherapy, patient &/family, 30 minutes, established patient October 12, 2016 IMMUNIZATIONS No Known Immunizations MEDICAL (GENERAL) HISTORY [...] Right Shoulder 2016 Hospitalization History strep throat 2011
--- OUTSIDE RECORDS SUMMARY | 2017-03-24 07:38 | XMS REPORT ---
Author Author MANISHA CARLSON Organization [facility] Address [address] [place] [address] Care Team Providers Care Tissue Packer Name Role Phone MANISHA CARLSON Unavailable PROBLEMS Type Condition ICD9-CM Code QEF45-SQ Code Onset Dates Condition Status SNOMED Code Problem Environmental allergies Z91.09 Active 857599904 Problem Anxiety F41.9 Active 77828939 Problem ADHD, predominantly inattentive type F90.0 Active 11743103 Problem Pain in right shoulder M25.511 Active 25632956 Problem Depression F32.9 Active 33267126 ALLERGIES Substance Reaction Event Type Date Status Lamictal RASH ALL OVER BODY WAS SEEN IN ER. Drug Allergy Jun, Active SOCIAL HISTORY Never Assessed PLAN OF CARE Activity Details Follow Up 2 Weeks Reason:Depression, anxiety VITAL SIGNS MEDICATIONS Unknown Medications RESULTS No Results PROCEDURES Procedure Date Ordered Result Body Site Psychotherapy, patient &/family, 30 minutes, established patient Jun 20, 2016 IMMUNIZATIONS No Known Immunizations MEDICAL (GENERAL) [...]
--- OUTSIDE RECORDS SUMMARY | 2017-03-24 07:38 | XMS REPORT ---
Author Author KIAH MASON Organization [employer] Address Unknown Phone Unavailable Care Team Providers Care Drier Transfer Car Operator Name Role Phone KIAH MASON CP Unavailable Allergies No Known Allergies Problems Problem Type Condition Code Onset Dates Condition Status Problem Encounter for long-term (current) use of other medications V58.69 Active Problem Unspecified dental caries 521.00 Active Problem Routine general medical examination at health care facility V70.0 Active Assessment Tear of right rotator cuff, unspecified tear extent M75.101 Active Assessment SLAP lesion of right shoulder S43.431A Active Problem MARQUIS (generalized anxiety disorder) F41.1 Active Problem Anxiety state, unspecified 300.00 Active Problem Pain in right shoulder M25.511 Active Problem Unspecified mood [affective] disorder F39 Active Problem Nondependent tobacco use disorder 305.1 Active Problem ADHD, predominantly inattentive type F90.0 Active Problem Depression F32.9 Active Medications No Known Medications Results No Known Results Summary Purpose eClinicalWorks Submission
--- OUTSIDE RECORDS SUMMARY | 2017-03-24 07:40 | XMS REPORT ---
Author Author TAMIKO LARA [facility] Address [address] [place] [address] Care Team Providers Care Trekking Guide Name Role Phone TAMIKO LARA Unavailable PROBLEMS Type Condition ICD9-CM Code ESM06-CM Code Onset Dates Condition Status SNOMED Code Problem Environmental allergies Z91.09 Active 858587373 Problem Anxiety F41.9 Active 68119964 Problem ADHD, predominantly inattentive type F90.0 Active 78664051 Problem Pain in right shoulder M25.511 Active 03354692 Problem Depression F32.9 Active 18772802 ALLERGIES Unknown Allergies SOCIAL HISTORY No smoking Hx information available PLAN OF CARE VITAL SIGNS MEDICATIONS Unknown Medications RESULTS No Results PROCEDURES No Known procedures IMMUNIZATIONS No Known Immunizations
--- OUTSIDE RECORDS SUMMARY | 2017-03-24 07:40 | XMS REPORT ---
Author Author TAMIKO LARA Organization [facility] Address [address] [place] [address] Care Team Providers Care Aviation Tactical Readiness Officer Name Role Phone TAMIKO LARA Unavailable PROBLEMS Type Condition ICD9-CM Code XQL82-QQ Code Onset Dates Condition Status SNOMED Code Problem Environmental allergies Z91.09 Active 805632458 Problem Anxiety F41.9 Active 11263370 Problem ADHD, predominantly inattentive type F90.0 Active 74330569 Problem Pain in right shoulder M25.511 Active 60906450 Problem Depression F32.9 Active 20583758 ALLERGIES No Information SOCIAL HISTORY Never Assessed PLAN OF CARE VITAL SIGNS MEDICATIONS Medication Instructions Dosage Frequency Start Date End Date Duration Status Methylphenidate HCl 20 mg Orally in the AM & 12N. Take 1/2 tab at 4pm for ADHD 1 tablet Jul, 28 days Active RESULTS No Results PROCEDURES [...]
--- OUTSIDE RECORDS SUMMARY | 2017-03-24 07:40 | XMS REPORT ---
Author TAMIKO Saldana [employer]ClinicalWorks Address Unknown Phone Unavailable Care Team Providers Care Trade Analyst Name Role Phone TAMIKO LARA CP Unavailable Allergies No Known Allergies Problems Problem Type Condition Code Onset Dates Condition Status Assessment MARQUIS (generalized anxiety disorder) F41.1 Active Problem Encounter for long-term (current) use of other medications V58.69 Active Assessment ADHD, predominantly inattentive type F90.0 Active Assessment Depression F32.9 Active Problem MARQUIS (generalized anxiety disorder) F41.1 Active Problem ADHD, predominantly inattentive type F90.0 Active Problem Pain in right shoulder M25.511 Active Problem Unspecified dental caries 521.00 Active Problem Routine general medical examination at health care facility V70.0 Active Problem Depression F32.9 Active Problem Nondependent tobacco use disorder 305.1 Active Medications Medication Code System Code Instructions Start Date End Date Status Dosage PredniSONE [facility] [address]-28 20 mg Orally Once a day Mar 07, 2016 Mar 12, 2016 2 tablets BuPROPion HCl (SR) [facility] [address]-91 150 MG Orally in the morning and at bedtime December 01, 2015 1 tablet Augmentin [facility] [address]-62 875-125 MG Orally every 12 hrs Mar 07, 2016 Mar 17, 2016 1 tablet Neurontin [facility] [address]-25 300 MG Orally November 10, 2015 1 capsule in the AM and 2 caps at bedtime Procedures Procedure Coding System Code Date Office Visit, Est Pt., Level 3 CPT-4 67178 Mar 08, 2016 Vital Signs Date/Time: Mar 08, 2016 Cardiac Monitoring Heart Rate 88 bpm Weight 227.6 lbs Height 67 in BMI 35.64 Index Blood Pressure Diastolic 80 mmHg Blood Pressure Systolic 138 mmHg Results No Known Results Summary Purpose eClinicalWorks Submission
--- OUTSIDE RECORDS SUMMARY | 2017-03-24 07:40 | XMS REPORT ---
Author Author TAMIKO LARA Organization [facility] Address [address] [place] [address] Care Team Providers Care Media Sales Executive Name Role Phone YARED LARAA Unavailable PROBLEMS Type Condition ICD9-CM Code INK57-AN Code Onset Dates Condition Status SNOMED Code Problem Environmental allergies Z91.09 Active 174327605 Problem Anxiety F41.9 Active 14549613 Problem ADHD, predominantly inattentive type F90.0 Active 36781953 Problem Pain in right shoulder M25.511 Active 69629899 Problem Depression F32.9 Active 07891382 ALLERGIES Substance Reaction Event Type Date Status Lamictal RASH ALL OVER BODY WAS SEEN IN ER. Drug Allergy May, Active SOCIAL HISTORY No smoking Hx information available PLAN OF CARE Activity Details Follow Up 2 Months Reason: VITAL SIGNS Height 67 in 2016-05-17 Weight 223 lbs 2016-05-17 Heart Rate 92 bpm 2016-05-17 Respiratory Rate 20 2016-05-17 BMI 34.92 kg/m2 2016-05-17 Blood pressure systolic 124 mmHg 2016-05-17 Blood pressure diastolic 91 mmHg 2016-05-17 MEDICATIONS Medication Instructions Dosage Frequency Start Date End Date Duration Status Methylphenidate HCl 20 MG Orally in the AM & 12N. Take 1/2 tab at 4pm for ADHD 1 tablet May, Active Neurontin 300 MG Orally 2 times a day 1 capsule 12h 30 Oct, 2015 Active Clonidine HCl 0.1 MG Orally for sleep 1 tablet at bedtime May, Active BuPROPion HCl (SR) 150 MG Orally in the morning and at bedtime 1 tablet Nov, Active RESULTS No Results PROCEDURES Procedure Date Ordered Related Diagnosis Body Site MH Office Visit, Est Pt., Level 4 May 17, 2016 IMMUNIZATIONS No Known Immunizations
--- OUTSIDE RECORDS SUMMARY | 2017-03-24 07:40 | XMS REPORT ---
Author Author TAMIKO LARA [employer] Address Unknown Phone Unavailable Care Team Providers Care Commercial Credit Specialist Name Role Phone TAMIKO LARA CP [...]
--- OUTSIDE RECORDS SUMMARY | 2017-03-24 07:40 | XMS REPORT ---
Author Author ETIENNE ESPITIA [facility] eClinicalWorks Address Unknown Phone Unavailable Care Team Providers Care Release Specialist Name Role Phone ETIENNE ESPITIA CP Unavailable [...] patient &/family, 30 minutes, established patient CPT-4 00784 Jan 02, 2016 Results No Known Results Summary Purpose eClinicalWorks Submission
--- OUTSIDE RECORDS SUMMARY | 2017-03-24 07:40 | XMS REPORT ---
Author Author DAVID SHEPHERD Organization [employer] Address Unknown Phone Unavailable Care Team Providers Care Zoo Caretaker Name Role Phone DAVID SHEPHERD CP Unavailable Allergies, Adverse Reactions, Alerts Substance Reaction Event Type Lamictal RASH ALL OVER BODY WAS SEEN IN ER. Drug Allergy Problems Problem Type Condition Code Onset Dates Condition Status Problem Encounter for long-term (current) use of other medications V58.69 Active Problem Unspecified dental caries 521.00 Active Problem Routine general medical examination at health care facility V70.0 Active Assessment Acute right ankle pain M25.571 Active Problem MARQUIS (generalized anxiety disorder) F41.1 Active Problem Anxiety state, unspecified 300.00 Active Problem Pain in right shoulder M25.511 Active Problem Unspecified mood [affective] disorder F39 Active Problem Nondependent tobacco use disorder 305.1 Active Problem ADHD, predominantly inattentive type F90.0 Active Problem Depression F32.9 Active Medications Medication Code System Code Instructions Start Date End Date Status Dosage Neurontin [facility] [address]-00 300 MG Orally 2 times a day November 10, 2015 1 capsule BuPROPion HCl (SR) [facility] [address]-99 150 MG Orally Once a day for nicotine addiction December 01, 2015 1 tablet Procedures Procedure Coding System Code Date Office Visit, Est Pt., Level 3 CPT-4 47556 Dec 13, 2015 X-RAY EXAM OF ANKLE CPT-4 34558 Dec 13, 2015 Vital Signs Date/Time: Dec 13, 2015 Cardiac Monitoring Heart Rate 84 bpm Weight 211.6 lbs Height 67 in BMI 33.14 Index Blood Pressure Diastolic 74 mmHg Blood Pressure Systolic 124 mmHg Results No Known Results Summary Purpose [employer]ClinicalWorks Submission
--- OUTSIDE RECORDS SUMMARY | 2017-03-24 07:40 | XMS REPORT ---
Author Author TAMIKO LARA [facility] e[employer] Address Unknown Phone Unavailable Care Team Providers Care Manager Installation Name Role Phone TAMIKO LARA CP Unavailable Allergies No Known Allergies Problems Problem Type Condition Code Onset Dates Condition Status Problem Nondependent tobacco use disorder 305.1 Active Problem Unspecified dental caries 521.00 Active Problem Unspecified mood [affective] disorder F39 Active Problem Routine general medical examination at health care facility V70.0 Active Problem Encounter for long-term (current) use of other medications V58.69 Active Medications Medication Code System Code Instructions Start Date End Date Status Dosage Methylphenidate [facility] [address]-25 20 MG/9HR Oral in the AM, 1pm and 4pm for ADHD [place] to sign for Karly [address] [facility] [address]-82 20 MG Orally for ADHD [place] to sign for Karly July 27, 2014 1 tablet in AM, 1PM and 4 PM Results No Known Results Summary Purpose [employer]Works Submission
--- OUTSIDE RECORDS SUMMARY | 2017-03-24 07:40 | XMS REPORT ---
Author TAMIKO Saldana [employer] Address Unknown Phone Unavailable Care Team Providers Care Waist Cutter Name Role Phone TAMIKO LARA CP Unavailable [...] Start Date End Date Status Dosage Ritalin [facility] [address]-89 10 MG Orally 2 tab in the AM, and 1pm and 1 tab at 4pm for ADHD - Dr Fowler to sign for Karly July 27, 2014 1 tablet Results No Known Results Summary Purpose [employer]Works Submission
--- OUTSIDE RECORDS SUMMARY | 2017-03-24 07:40 | XMS REPORT ---
Author Author TAMIKO LARA [employer] Address Unknown Phone Unavailable Care Team Providers Care Superintendent Storage Area Name Role Phone TAMIKO LARA CP Unavailable Allergies, Adverse Reactions, Alerts Substance Reaction Event Type Lamictal RASH ALL OVER BODY WAS SEEN IN ER. Drug Allergy Problems Problem Type Condition Code Onset Dates Condition Status Assessment ADHD, predominantly inattentive type F90.0 Active Problem Encounter for long-term (current) use of other medications V58.69 Active Assessment Anxiety state, unspecified 300.00 Active Assessment Depression F32.9 Active Problem ADHD, predominantly inattentive type F90.0 Active Problem Depression F32.9 Active Problem Anxiety state, unspecified 300.00 Active Problem Unspecified dental caries 521.00 Active Problem Routine general medical examination at health care facility V70.0 Active Problem Unspecified mood [affective] disorder F39 Active Problem Nondependent tobacco use disorder 305.1 Active Medications Medication Code System Code Instructions Start Date End Date Status Dosage Ritalin [facility] [address]-90 10 MG Orally 2 tab in the AM, and 1pm and 1 tab at 4pm for ADHD - [place] to sign for Karly July 27, [address] [facility] [address]-70 300 MG Orally 2 times a day for anxiety/mood Dec 30, [address] [facility] [address]-09 25 MG Orally 2 times a day for anxiety Dec 30, 2014 1 tablet Procedures Procedure Coding System Code Date Office Visit, Est Pt., Level 3 CPT-4 38805 Mar 31, 2015 Vital Signs Date/Time: Mar 31, 2015 Cardiac Monitoring Heart Rate 100 bpm Weight 210 lbs Height 67 in BMI 32.89 Index Blood Pressure Diastolic 76 mmHg Blood Pressure Systolic 110 mmHg Results No Known Results Summary Purpose [employer]ClinicalWorks Submission
--- OUTSIDE RECORDS SUMMARY | 2017-03-24 07:41 | XMS REPORT ---
Author Author ETIENNE ESPITIA [facility] e[employer] Address Unknown Phone Unavailable Care Team Providers Care Process Mechanic Name Role Phone ETIENNE ESPITIA CP Unavailable [...] patient &/family, 30 minutes, established patient CPT-4 78417 Feb 21, 2016 Results No Known Results Summary Purpose [employer] Submission
--- OUTSIDE RECORDS SUMMARY | 2017-03-24 07:42 | XMS REPORT ---
Author DIANNE Aguilar Organization [employer] Address Unknown Phone Unavailable Care Team Providers Care Aircraft Assembler Name Role Phone DIANNE MAHER CP Unavailable [...] F90.0 Active Problem Depression F32.9 Active Assessment Mood disorder F39 Active Assessment Anxiety F41.9 Active Assessment Pain in right ankle and joints of right foot M25.571 Active Assessment Other chronic pain G89.29 Active Medications Medication Code System Code Instructions Start Date End Date Status Dosage Amitriptyline HCl [facility] [address]-82 25 MG Orally Once a day Dec 14, 2015 1 tablet BuPROPion HCl (SR) [facility] [address]-37 150 MG Orally Once a day for nicotine addiction December 01, 2015 1 tablet PredniSONE [facility] [address]-32 20 mg Orally Once a day Dec 16, 2015 Dec 21, 2015 2 tablets Neurontin [facility] [address]-02 300 MG Orally 2 times a day November 10, 2015 1 capsule Procedures Procedure Coding System Code Date Office Visit, Est Pt., Level 3 CPT-4 39995 Dec 16, 2015 Vital Signs Date/Time: Dec 16, 2015 Cardiac Monitoring Heart Rate 84 bpm Weight 211.3 lbs Height 67 in BMI 33.09 Index Blood Pressure Diastolic 74 mmHg Blood Pressure Systolic 116 mmHg Results No Known Results Summary Purpose [employer]ClinicalWorks Submission
--- OUTSIDE RECORDS SUMMARY | 2017-03-24 07:42 | XMS REPORT ---
Author Author TAMIKO LARA [employer] Address Unknown Phone Unavailable Care Team Providers Care Latex Thread Machine Operator Name Role Phone TAMIKO LARA CP Unavailable [...]
--- OUTSIDE RECORDS SUMMARY | 2017-03-24 07:43 | XMS REPORT ---
Author Author DIANNE MAHER Organization [facility] Address [address] [place] [address] Care Team Providers Care Fish Cutting Machine Operator Name Role Phone DIANNE MAHER Unavailable PROBLEMS Type Condition ICD9-CM Code [id number] Code Onset Dates Condition Status SNOMED Code Problem Environmental allergies Z91.09 Active 647037810 Problem Anxiety F41.9 Active 18747046 Problem ADHD, predominantly inattentive type F90.0 Active 43245758 Problem Pain in right shoulder M25.511 Active 74691635 Problem Depression F32.9 Active 55868254 ALLERGIES Substance Reaction Event Type Date Status Lamictal RASH ALL OVER BODY WAS SEEN IN ER. Drug Allergy May, Active SOCIAL HISTORY No smoking Hx information available PLAN OF CARE Activity Details Follow Up 4 Weeks Reason:anxiety VITAL SIGNS Height 67 in 2016-05-24 Weight 218.4 lbs 2016-05-24 Temperature 97.8 degrees Fahrenheit 2016-05-24 Heart Rate 92 bpm 2016-05-24 Respiratory Rate 22 2016-05-24 BMI 34.20 kg/m2 2016-05-24 Blood pressure systolic 136 mmHg 2016-05-24 Blood pressure diastolic 90 mmHg 2016-05-24 MEDICATIONS Medication Instructions Dosage Frequency Start Date End Date Duration Status Paroxetine HCl 20 mg Orally Once a day 1 tablet in the morning 24h May, 30 day(s) Active Methylphenidate HCl 20 MG Orally in the AM & 12N. Take 1/2 tab at 4pm for ADHD 1 tablet May, Active Neurontin 300 MG Orally 2 times a day 1 capsule 12h 30 Oct, 2015 Active Clonidine HCl 0.1 MG Orally for sleep 1 tablet at bedtime May, Active RESULTS No Results PROCEDURES Procedure Date Ordered Related Diagnosis Body Site Office Visit, Est Pt., Level 3 May 24, 2016 IMMUNIZATIONS No Known Immunizations
--- OUTSIDE RECORDS SUMMARY | 2017-03-24 07:43 | XMS REPORT ---
Author Author TAMIKO LARA [employer] Address Unknown Phone Unavailable Care Team Providers Care Water Fitness Instructor Name Role Phone TAMIKO LARA CP Unavailable [...] Start Date End Date Status Dosage Ritalin [facility] [address]-38 10 MG Orally in the AM and 1pm and 1 tab at 4pm for ADHD - Dr Fowler to sign for Karly July 27, 2014 2 tablet Results No Known Results Summary Purpose eClinicalWorks Submission
--- OUTSIDE RECORDS SUMMARY | 2017-03-24 07:43 | XMS REPORT ---
Author Author TAMIKO LARA Organization [facility] Address [address] [place] [address] Care Team Providers Care Police Shift Commander Name Role Phone TAMIKO LARA Unavailable PROBLEMS Type Condition ICD9-CM Code [id number] Code Onset Dates Condition Status SNOMED Code Problem Environmental allergies Z91.09 Active 545690966 Problem Anxiety F41.9 Active 19348366 Problem ADHD, predominantly inattentive type F90.0 Active 24458378 Problem Pain in right shoulder M25.511 Active 71999097 Problem Depression F32.9 Active 25194652 ALLERGIES No Information SOCIAL HISTORY Never Assessed PLAN OF CARE VITAL SIGNS MEDICATIONS Medication Instructions Dosage Frequency Start Date End Date Duration Status Methylphenidate HCl 20 mg Orally in the AM & 12N. Take 1/2 tab at 4pm for ADHD 1 tablet September, 28 days Active RESULTS No Results PROCEDURES [...]
--- OUTSIDE RECORDS SUMMARY | 2017-03-24 07:43 | XMS REPORT ---
Author Author ETIENNE ESPITIA [facility] Address [address] [place] [address] Care Team Providers Care Customer Expert Name Role Phone ETIENNE ESPITIA Unavailable PROBLEMS Type Condition ICD9-CM Code [id number] Code Onset Dates Condition Status SNOMED Code Problem Environmental allergies Z91.09 Active 318860482 Problem Anxiety F41.9 Active 72178731 Problem ADHD, predominantly inattentive type F90.0 Active 69633028 Problem Pain in right shoulder M25.511 Active 50008131 Problem Depression F32.9 Active 28241489 ALLERGIES Unknown Allergies SOCIAL HISTORY No smoking Hx information available PLAN OF CARE Activity Details Follow Up 2 Weeks Reason: VITAL SIGNS MEDICATIONS Unknown Medications RESULTS No Results PROCEDURES Procedure Date Ordered Related Diagnosis Body Site Psychotherapy, patient &/family, 30 minutes, established patient Jun 04, 2016 IMMUNIZATIONS No Known Immunizations
--- OUTSIDE RECORDS SUMMARY | 2017-03-24 07:44 | XMS REPORT ---
Author Author ETIENNE ESPITIA [facility] e[employer]Works Address Unknown Phone Unavailable Care Team Providers Care Regulation Supervisor Name Role Phone ETIENNE ESPITIA CP Unavailable Allergies No Known Allergies Problems Problem Type Condition ICD-9 Code Onset Dates Condition Status Problem Nondependent tobacco use disorder 305.1 Active Problem Unspecified dental caries 521.00 Active Problem Unspecified episodic mood disorder 296.90 Active Problem Encounter for long-term (current) use of other medications V58.69 Active Assessment Episodic mood disorder 296.90 Active Problem Routine general medical examination at health care facility V70.0 Active Problem Anxiety state, unspecified 300.00 Active Medications No Known Medications Procedures Procedure Coding System Code Date Psychotherapy, patient &/family, 30 minutes, established patient CPT-4 56574 Jan 31, 2015 Results No Known Results Summary Purpose eClinicalWorks Submission
--- OUTSIDE RECORDS SUMMARY | 2017-03-24 07:44 | XMS REPORT ---
Author Author ETIENNE ESPITIA [facility] Address [address] [place] [address] Care Team Providers Care Director Of Religious Activities Name Role Phone ETIENNE ESPITIA Unavailable PROBLEMS Type Condition ICD9-CM Code ONP48-VI Code Onset Dates Condition Status SNOMED Code Problem Environmental allergies Z91.09 Active 176397057 Problem Anxiety F41.9 Active 48815787 Problem ADHD, predominantly inattentive type F90.0 Active 37785917 Problem Pain in right shoulder M25.511 Active 51651128 Problem Depression F32.9 Active 48955300 ALLERGIES Unknown Allergies SOCIAL HISTORY No smoking Hx information available PLAN OF CARE Activity Details Follow Up 2 Weeks Reason: VITAL SIGNS MEDICATIONS Unknown Medications RESULTS No Results PROCEDURES Procedure Date Ordered Related Diagnosis Body Site Psychotherapy, patient &/family, 45 minutes, established patient May 17, 2016 IMMUNIZATIONS No Known Immunizations
--- OUTSIDE RECORDS SUMMARY | 2017-03-24 07:44 | XMS REPORT ---
Author Author JANE TAMIKO Organization [facility] Address [address] [place] [address] Care Team Providers Care Accounting Associate Name Role Phone TAMIKO LARA Unavailable PROBLEMS Type Condition ICD9-CM Code [id number] Code Onset Dates Condition Status SNOMED Code Problem Environmental allergies Z91.09 Active 733359374 Problem Anxiety F41.9 Active 38449800 Problem ADHD, predominantly inattentive type F90.0 Active 18901408 Problem Pain in right shoulder M25.511 Active 03136314 Problem Depression F32.9 Active 83374972 ALLERGIES Substance Reaction Event Type Date Status Lamictal RASH ALL OVER BODY WAS SEEN IN ER. Drug Allergy Aug, Active SOCIAL HISTORY Never Assessed PLAN OF CARE Activity Details Follow Up 4 Months Reason: VITAL SIGNS Height 67 in 2016-09-04 Weight 201.5 lbs 2016-09-04 Heart Rate 100 bpm 2016-09-04 Respiratory Rate 20 2016-09-04 BMI 31.56 kg/m2 2016-09-04 Blood pressure systolic 110 mmHg 2016-09-04 Blood pressure diastolic 82 mmHg 2016-09-04 MEDICATIONS Medication Instructions Dosage Frequency Start Date End Date Duration Status Neurontin 300 MG Orally 2 times a day 1 capsule 12h Oct, Active Methylphenidate HCl 20 mg Orally in the AM & 12N. Take 1/2 tab at 4pm for ADHD 1 tablet Jul, Active Clonidine HCl 0.2 MG Orally at bedtime for sleep 1 tablet May, Active BuPROPion HCl (SR) 150 MG Orally 2 times a day (AM and bedtime) 1 tablet Active RESULTS No Results PROCEDURES No Known procedures IMMUNIZATIONS No Known Immunizations MEDICAL (GENERAL) HISTORY Type Description Date Medical History ADHD Medical History Anxiety Medical History Mood Swings Medical History Unspecified mood [affective] disorder Medical History Marital conflict Medical History Adjustment disorder with anxious mood Medical History MARQUIS (generalized anxiety disorder) Medical History MARQUIS (generalized anxiety disorder) Surgical History appendectomy 2010 Surgical History right shoulder repair x 2 2012 Surgical History Right Shoulder 2016 Hospitalization History strep throat 2010
[2017-03-24] MEDS ORDERED: METH20TA34 (07:46)
--- OUTSIDE RECORDS SUMMARY | 2017-03-24 07:50 | XMS REPORT ---
Author Author TAMIKO LARA [employer] Address Unknown Phone Unavailable Care Team Providers Care Surgery Technician Name Role Phone TAMIKO LARA CP Unavailable [...] ADHD, predominantly inattentive type F90.0 Active Assessment Unspecified mood [affective] disorder F39 Active Medications Medication Code System Code Instructions Start Date End Date Status Dosage Amitriptyline HCl [facility] [place] [address]-94 50 MG Orally Once at bedtime for sleep/ anxiety Dec 14, 2015 1 tablet BuPROPion HCl (SR) [facility] [place] [address]-34 150 MG Orally Once a day for nicotine addiction December 01, 2015 1 tablet Neurontin [facility] [place] [address]-32 300 MG Orally 2 times a day November 10, 2015 1 capsule Procedures Procedure Coding System Code Date Office Visit, Est Pt., Level 4 CPT-4 07348 Dec 22, 2015 Vital Signs Date/Time: Dec 22, 2015 Blood Pressure Diastolic 84 mmHg Blood Pressure Systolic 132 mmHg Height 67 in Results No Known Results Summary Purpose eClinicalWorks Submission
--- OUTSIDE RECORDS SUMMARY | 2017-03-24 07:50 | XMS REPORT ---
Author Author PAUL DEWAYNE [facility] Address [address] [place] [address] Care Team Providers Care Deer Farmer Name Role Phone DEWAYNE PAUL Unavailable PROBLEMS Type Condition ICD9-CM Code [id number] Code Onset Dates Condition Status SNOMED Code Problem Environmental allergies Z91.09 Active 628380831 Problem Anxiety F41.9 Active 97468609 Problem ADHD, predominantly inattentive type F90.0 Active 65252180 Problem Pain in right shoulder M25.511 Active 73644590 Problem Depression F32.9 Active 80713612 ALLERGIES Substance Reaction Event Type Date Status Lamictal RASH ALL OVER BODY WAS SEEN IN ER. Drug Allergy Jun, Active SOCIAL HISTORY Never Assessed PLAN OF CARE Activity Details Follow Up 2 Weeks, prn Reason: VITAL SIGNS Height 67 in 2016-07-03 Weight 209 lbs 2016-07-03 Temperature 97.8 degrees Fahrenheit 2016-07-03 Heart Rate 84 bpm 2016-07-03 Respiratory Rate 18 2016-07-03 BMI 32.73 kg/m2 2016-07-03 Blood pressure systolic 128 mmHg 2016-07-03 Blood pressure diastolic 78 mmHg 2016-07-03 MEDICATIONS Medication Instructions Dosage Frequency Start Date End Date Duration Status Neurontin 300 MG Orally 2 times a day 1 capsule 12h Oct, Active Clonidine HCl 0.2 MG Orally at bedtime for sleep 1 tablet May, Active BuPROPion HCl (SR) 150 MG Orally in the morning and at bedtime 1 tablet Nov, Active DiphenhydrAMINE HCl 25 MG Orally Three times a day 1 capsule as needed 8h Jun, Active Methylphenidate HCl 20 mg Orally in the AM & 12N. Take 1/2 tab at 4pm for ADHD 1 tablet Jun, Jul, 28 days Active RESULTS No Results PROCEDURES Procedure Date Ordered Result Body Site DEXAMETHASONE 4MG/ML (PER 1 MG) Jul 03, 2016 DEPO MEDROL 40 MG/ML Jul 03, 2016 THER/PROPH/DIAG INJ, SC/IM Jul 03, 2016 IMMUNIZATIONS Vaccine Route Administration Date Status DEXAMETHASONE 4MG/ML (PER 1 MG) IM Intramuscular Jul 03, 2016 Administered DEPO MEDROL 40 MG/ML IM Intramuscular Jul 03, 2016 Administered MEDICAL (GENERAL) HISTORY Type Description Date Medical [...]
[2017-03-24 09:02] LABS: BASOPHILS % (AUTO) 0 % (0-10); EOSINOPHILS # (AUTO) 0.1 10^3/uL (0.0-0.3); EOSINOPHILS % (AUTO) 1 % (0-10); LYMPHOCYTES # (AUTO) 1.9 X 10^3 (1.0-4.0); LYMPHOCYTES % (AUTO) 19 % (12-44); MEAN CORPUSCULAR HEMOGLOBIN 31 PG (25-34); MEAN CORPUSCULAR HGB CONC 36 G/DL (32-36); MEAN CORPUSCULAR VOLUME 86 FL (80-99); MEAN PLATELET VOLUME 11.9 FL (7.4-10.4); MONOCYTES # (AUTO) 1.3 X 10^3 (0.0-1.0); MONOCYTES % (AUTO) 13 % (0-12); NEUTROPHILS # (AUTO) 6.8 X 10^3 (1.8-7.8); NEUTROPHILS % (AUTO) 67 % (42-75); PLATELET COUNT 169 10^3/uL (130-400); RED BLOOD COUNT 5.34 10^6/uL (4.35-5.85); RED CELL DISTRIBUTION WIDTH 12.6 % (10.0-14.5); WHITE BLOOD COUNT 10.1 10^3/uL (4.3-11.0)
[2017-03-24 09:23] LABS: ALANINE AMINOTRANSFERASE 16 U/L (0-55); ALBUMIN 4.4 GM/DL (3.2-4.5); ANION GAP 9 MMOL/L (5-14); ASPARTATE AMINO TRANSFERASE 16 U/L (5-34); BILIRUBIN,TOTAL 1.3 MG/DL (0.1-1.0); BLOOD UREA NITROGEN 11 MG/DL (7-18); BUN/CREATININE RATIO 13; CALCIUM 9.4 MG/DL (8.5-10.1); CARBON DIOXIDE 26 MMOL/L (21-32); CHLORIDE 103 MMOL/L (98-107); CREATININE SERUM 0.87 MG/DL (0.60-1.30); GFR ESTIMATED > 60; GLUCOSE 94 MG/DL (70-105); POTASSIUM 4.4 MMOL/L (3.6-5.0); SODIUM 138 MMOL/L (135-145); TOTAL PROTEIN 6.7 GM/DL (6.4-8.2)
--- NOTE | 2017-03-24 10:22 | ED Cough/URI ---
General Chief Complaint: Cough/Cold/Flu Symptoms Stated Complaint: HURTING EARS, SORENESS; POST FLU SHOT Nursing Triage Note: ARRIVED VIA AMB TO ROOM 05 WITH COMPLAINTS OF COLD LIKE SX SINCE SATURDAY AFTER RECIEVING FLU SHOT. Source: patient Exam Limitations: no limitations History of Present Illness Time seen by provider: 10:16 Initial Comments The patient is a 31-year-old male who presents with a chief complaint of ear pressure, myalgia, general malaise. He reports that he had a flu shot 2 days ago and the symptoms have Since then. He has a slight cough but has had no fever. There is no one at home who is ill. He works as a cook. Severity/Quality: dry cough Prior Episodes/Possible Cause: no prior episodes Allergies and Home Medications Allergies Coded Allergies: lamotrigine (Verified Allergy, Unknown, 03/13/16) Home Medications Methylphenidate HCl 20 Mg Tablet, (Reported) Constitutional: see HPI EENTM: ear pain Respiratory: cough Cardiovascular: no symptoms reported Gastrointestinal: no symptoms reported Genitourinary: no symptoms reported Musculoskeletal: no symptoms reported Skin: no symptoms reported Psychiatric/Neurological: No Symptoms Reported Hematologic/Lymphatic: No Symptoms Reported Immunological/Allergic: no symptoms reported Past Cwappzm-[id number]-Ybdkbg Hx Patient Social History Type Used: Cigarettes Recent Foreign Travel: No Contact w/Someone Who Travel: No Recent Infectious Disease Expo: No Recent Hopitalizations: No Surgeries History of Surgeries: Yes (labrum right shoulder) Surgeries: Appendectomy, Orthopedic Respiratory History of Respiratory Disorde: No Cardiovascular History of Cardiac Disorders: No Neurological History of Neurological Disord: No Reproductive System Hx Reproductive Disorders: No Genitourinary History of Genitourinary Disor: No Gastrointestinal History of Gastrointestinal Di: Yes Gastrointestinal Disorders: Chronic Diarrhea Musculoskeletal History of Musculoskeletal Dis: No Endocrine History of Endocrine Disorders: No HEENT History of HEENT Disorders: No Cancer History of Cancer: No Psychosocial History of Psychiatric Problem: Yes Behavioral Health Disorders: ADD/ADHD, Sleep Difficulties, Anxiety Integumentary History of Skin or Integumenta: No Blood Transfusions History of Blood Disorders: No Family Medical History Significant Family History: No Pertinent Family Hx Physical Exam Vital Signs Vital Sign - Last 12Hours 03/24/17 07:35 Temp 98.4 Pulse 74 Resp 18 B/P (MAP) 136/89 Pulse Ox 98 Capillary Refill : Less Than 3 Seconds General Appearance: mild distress Eyes: Bilateral Eye Normal Inspection HEENT: TMs normal, pharyngeal erythema Neck: full range of motion Respiratory: chest non-tender, lungs clear, normal breath sounds, no respiratory distress, no accessory muscle use, respiratory distress Cardiovascular: normal peripheral pulses, regular rate, rhythm, no edema, no gallop, no JVD, no murmur Gastrointestinal: normal bowel sounds, non tender, soft, no organomegaly, no pulsatile mass Multiple punctate eschars particularly dorsal right forearm and belly but also both lower legs. Progress/Results/Core Measures Results/Orders Lab Results Laboratory Tests Test 03/24/17 08:55 03/24/17 08:56 Range/Units Group A Streptococcus Screen NEGATIVE NEGATIVE White Blood Count 10.1 4.3-11.0 10^3/uL Red Blood Count 5.34 4.35-5.85 10^6/uL Hemoglobin 16.6 13.3-17.7 G/DL Hematocrit 46 40-54 % Mean Corpuscular Volume 86 80-99 FL Mean Corpuscular Hemoglobin 31 25-34 PG Mean Corpuscular Hemoglobin Concent 36 32-36 G/DL Red Cell Distribution Width 12.6 10.0-14.5 % Platelet Count 169 130-400 10^3/uL Mean Platelet Volume 11.9 H 7.4-10.4 FL Neutrophils (%) (Auto) 67 42-75 % Lymphocytes (%) (Auto) 19 12-44 % Monocytes (%) (Auto) 13 H 0-12 % Eosinophils (%) (Auto) 1 0-10 % Basophils (%) (Auto) 0 0-10 % Neutrophils # (Auto) 6.8 1.8-7.8 X 10^3 Lymphocytes # (Auto) 1.9 1.0-4.0 X 10^3 Monocytes # (Auto) 1.3 H 0.0-1.0 X 10^3 Eosinophils # (Auto) 0.1 0.0-0.3 10^3/uL Basophils # (Auto) 0.0 0.0-0.1 10^3/uL Sodium Level 138 135-145 MMOL/L Potassium Level 4.4 3.6-5.0 MMOL/L Chloride Level 103 98-107 MMOL/L Carbon Dioxide Level 26 21-32 MMOL/L Anion Gap 9 5-14 MMOL/L Blood Urea Nitrogen 11 7-18 MG/DL Creatinine 0.87 0.60-1.30 MG/DL Estimat Glomerular Filtration Rate > 60 BUN/Creatinine Ratio 13 Glucose Level 94 70-105 MG/DL Calcium Level 9.4 8.5-10.1 MG/DL Total Bilirubin 1.3 H 0.1-1.0 MG/DL Aspartate Amino Transf (AST/SGOT) 16 5-34 U/L Alanine Aminotransferase (ALT/SGPT) 16 0-55 U/L Alkaline Phosphatase 60 40-136 U/L Total Protein 6.7 6.4-8.2 GM/DL Albumin 4.4 3.2-4.5 GM/DL Micro Results Microbiology 03/24/17 Influenza Types A,B Antigen (YG) - Final, Complete My Orders Orders - JANET CLINE MD Cbc With Automated Diff (03/24/17 07:54) Comprehensive Metabolic Panel (03/24/17 07:54) Rapid Strep A Screen (03/24/17 07:54) Influenza A And B Antigens (03/24/17 07:54) Vital Signs/I&O Vital Sign - Last 12Hours 03/24/17 07:35 Temp 98.4 Pulse 74 Resp 18 B/P (MAP) 136/89 Pulse Ox 98 Blood Pressure Mean: 105 Departure Impression Impression: Primary Impression: viral URI Disposition: 01 HOME, SELF-CARE Condition: Stable/Unchanged Departure-Patient Inst. Referrals: [facility] (PCP/Family) Primary Care Physician Patient Instructions: Cough, Adult (DC) JANET CLINE MD Mar 24, 2017 10:22
[2017-03-24 10:43] VITALS: BP 131/79
== END 2017-03-24 10:43 | disposition home or self-care (01) ==
LOC: EDUNIT# 07:23 → ER 07:26
DX: J06.9 Acute upper respiratory infection, unspecified (principal); F90.9 Attention-deficit hyperactivity disorder, unspecified type; F41.9 Anxiety disorder, unspecified; Z90.49 Acquired absence of other specified parts of digestive tract; Z87.19 Personal history of other diseases of the digestive system
CPT/HCPCS: 36415; 80053; 85025; 87430; 87804; 99283

== ENCOUNTER 2018-01-26 16:21 | Emergency (ER) | payer MEDICAID, OTHER ==
[~2018-01-26 16:21] MED LIST changes: +HYDR-4226 PO; -HYDR-757 PO; +METH20TA34; +NAPR-1070 PO; -NAPR550T PO
== END 2018-01-26 17:23 | disposition left against medical advice (07) ==
LOC: EDUNIT# 16:21 → ER 16:23
DX: R20.2 Paresthesia of skin (principal)